=== PATIENT | male | born 1965 | race Caucasian/White ===

== ENCOUNTER 2021-12-25 23:24 | Emergency (ER) | payer BC, OTHER ==
[~2021-12-25] VITALS: Ht 161 cm; Wt 75.9 kg
[2021-12-25 23:38] VITALS: BP 138/76
--- NOTE | 2021-12-25 23:44 | NUR ---
pt taken to bed 03.
--- NOTE | 2021-12-25 23:45 | NUR ---
PT TAKEN TO BED 01 NOT 03.
--- NOTE | 2021-12-25 23:50 | NUR ---
PT AMBULATORY TO ABTHROOM W STEADY GAIT.
--- NOTE | 2021-12-26 00:11 | NUR ---
56 YO/M PRESESNTS TO ED W C/O GENITAL ITCHING X1 DAY + WORSENING INFLAMMATION TO TOP OF PENIS SINCE THIS MORNING, + SLIGHT RASH TO GROIN AREA, +BURNING URINATION. PT DENIES ANY PAIN, ABNORMAL PENILE DISCHARGE, HEMATURIA, FEVERS/CHILLS, N/V/D, OR FLANK PAIN. SWOLLEN GENITALIA NOTED W REDNESS AND RASH. PT TOOK X1 PENICILLIN TAB AT 1600 AND APPLIED CORTISONE CREAM W/O RELIEF. PT LAYING IN BED W BREATHING EVEN AND UNLABORED. WILL CONTINUE TO MONITOR. PMH: DIABETES ALLERGIES: DENIES
--- NOTE | 2021-12-26 00:43 | NUR ---
ERMD AT BEDSIDE ASSESSING PT.
--- NOTE | 2021-12-26 00:44 | NUR ---
PER ERMD NO URINE DIP NECESSARY.
[2021-12-26] MEDS ORDERED: MUPI2CRE22 TP (00:47)
[2021-12-26 01:13] VITALS: BP 138/76
--- NOTE | 2021-12-26 01:13 | NUR ---
Patient discharged with v/s stable. Written and verbal after care instructions given and explained. Patient alert, oriented and verbalized understanding of instructions. Ambulatory with steady gait. All questions addressed prior to discharge. ID band removed. Patient advised to follow up with PMD. Rx of MUPIROCIN given. Patient educated on indication of medication including possible reaction and side effects. Opportunity to ask questions provided and answered.
== END 2021-12-26 01:13 | disposition home or self-care (01) ==
LOC: MED 23:24
DX: N47.6 Balanoposthitis (principal); N47.1 Phimosis; E11.9 Type 2 diabetes mellitus without complications; Z79.899 Other long term (current) drug therapy
CPT/HCPCS: 99283